=== PATIENT | female | born 1940 | race Caucasian/White ===

== ENCOUNTER 2017-08-24 13:51 | Outpatient (CLI) | payer MEDICARE, OTHER | END 2017-08-24 13:52 | disposition home or self-care (01) | LOC: BICULT 13:51 | PROVIDERS: ATTEND Internal Medicine | DX: E04.2 Nontoxic multinodular goiter (principal) | CPT/HCPCS: 76536 ==

== ENCOUNTER 2018-06-13 13:42 | Outpatient (CLI) | payer MEDICARE, OTHER ==
--- NOTE | 2018-06-13 15:48 | ULT ---
BILATERAL RENAL ULTRASOUND: 06/13/18 HISTORY: Chronic renal disease. FINDINGS: The right kidney measures 8.1 cm and the left kidney measures 9.3 cm in length. No focal mass or hydr onephrosis seen on either side. No shadowing calculi are noted. The urinary bladder is incompletely d istended with a volume of 49 mL. IMPRESSION: No evidence of high grade obstruction. POS: [facility]
== END 2018-06-13 13:43 | disposition home or self-care (01) ==
LOC: BICULT 13:42
PROVIDERS: ATTEND Internal Medicine
DX: N18.3 Chronic kidney disease, stage 3 (moderate) (principal)
CPT/HCPCS: 76770

== ENCOUNTER 2018-09-12 13:05 | Outpatient (CLI) | payer MEDICARE, OTHER ==
--- NOTE | 2018-09-16 13:26 | MMO ---
Bilateral MAMMO Bilat Screen [facility]+JA[facility]EN. CLINICAL HISTORY: Patient is 78 years old and is seen for screening. The patient has no family history of breast cancer. The patient has no personal history of cancer. VIEWS: The views performed were: bilateral craniocaudal with tomosynthesis and bilateral mediolateral oblique with tomosynthesis. FILMS COMPARED: The present examination has been compared to prior imaging studies performed at [facility] on 10/18/2015 and 09/01/2016. MAMMOGRAM FINDINGS: There are scattered fibroglandular densities. There are stable benign appearing calcifications seen in both breasts. There are no suspicious masses, suspicious calcifications, or new areas of architectural distortion. IMPRESSION: THERE IS NO MAMMOGRAPHIC EVIDENCE OF MALIGNANCY. A ROUTINE FOLLOW-UP MAMMOGRAM IN 1 YEAR IS RECOMMENDED. THE RESULTS OF THIS EXAM WERE SENT TO THE PATIENT. ACR BI-RADS Category 2 - Benign finding MAMMOGRAPHY NOTE: 1. A negative mammogram report should not delay a biopsy if a dominant of clinically suspicious mass is present. 2. Approximately 10% to 15% of breast cancers are not detected by mammography. 3. Adenosis and dense breasts may obscure an underlying neoplasm.
== END 2018-09-12 13:06 | disposition home or self-care (01) ==
LOC: BICMAMMO 13:05
PROVIDERS: ATTEND Internal Medicine
DX: Z12.31 Encounter for screening mammogram for malignant neoplasm of breast (principal)
CPT/HCPCS: 77063; 77067

== ENCOUNTER 2019-03-28 20:30 | Outpatient (CLI) | payer MEDICARE, OTHER | END 2019-03-28 20:31 | disposition home or self-care (01) | LOC: SLEEPLAB 20:30 | PROVIDERS: ATTEND Internal Medicine | DX: G47.33 Obstructive sleep apnea (adult) (pediatric) (principal); R53.83 Other fatigue; I10 Essential (primary) hypertension | CPT/HCPCS: 95810 ==

== ENCOUNTER 2019-05-04 19:30 | Outpatient (CLI) | payer MEDICARE, OTHER | END 2019-05-04 19:31 | disposition home or self-care (01) | LOC: SLEEPLAB 19:30 | PROVIDERS: ATTEND Internal Medicine | DX: G47.33 Obstructive sleep apnea (adult) (pediatric) (principal); R53.83 Other fatigue; R09.89 Other specified symptoms and signs involving the circulatory and respiratory systems; I10 Essential (primary) hypertension; G47.00 Insomnia, unspecified; G47.10 Hypersomnia, unspecified; R06.83 Snoring | CPT/HCPCS: 95811 ==

== ENCOUNTER 2019-10-23 15:13 | Outpatient (CLI) | payer MEDICARE, OTHER ==
--- NOTE | 2019-10-24 08:07 | MMO ---
Bilateral MAMMO Bilat Screen [facility]EN. CLINICAL HISTORY: Patient is 79 years old and is seen for screening. The patient has no family history of breast cancer. The patient has no personal history of cancer. VIEWS: The views performed were: bilateral craniocaudal with tomosynthesis and bilateral mediolateral oblique with tomosynthesis. FILMS COMPARED: The present examination has been compared to prior imaging studies performed at [facility] on 10/18/2015, 09/01/2016 and 09/12/2018. This study has been interpreted with the assistance of computer-aided detection. MAMMOGRAM FINDINGS: There are scattered fibroglandular densities. There are benign appearing and vascular calcifications seen in both breasts. There are no suspicious masses, suspicious calcifications, or new areas of architectural distortion. IMPRESSION: THERE IS NO MAMMOGRAPHIC EVIDENCE OF MALIGNANCY. A ROUTINE FOLLOW-UP MAMMOGRAM IN 1 YEAR IS RECOMMENDED. THE RESULTS OF THIS EXAM WERE SENT TO THE PATIENT. ACR BI-RADS Category 2 - Benign finding MAMMOGRAPHY NOTE: 1. A negative mammogram report should not delay a biopsy if a dominant of clinically suspicious mass is present. 2. Approximately 10% to 15% of breast cancers are not detected by mammography. 3. Adenosis and dense breasts may obscure an underlying neoplasm. Reported by: CLARISSA PRIDE MD Electonically Signed: [id number]
== END 2019-10-23 15:14 | disposition home or self-care (01) ==
LOC: BICMAMMO 15:13
PROVIDERS: ATTEND Internal Medicine
DX: Z12.31 Encounter for screening mammogram for malignant neoplasm of breast (principal)
CPT/HCPCS: 77063; 77067

== ENCOUNTER 2020-01-12 18:56 | Inpatient (IN) | payer MEDICARE, OTHER ==
[2020-01-12 19:37] LABS: #Eosinphils 0.1 thou/uL (0.0-0.7); #Lymphocytes 2.7 thou/uL (1.20-3.40); #Monocytes 0.8 thou/uL (0.11-0.59); #Neutrophils 10.1 thou/uL (1.40-6.50); %Basophils 0.4 % (0.0-1.0); %Eosinophils 0.4 % (0.0-10.0); %Lymphocytes 19.9 % (21.0-51.0); %Monocytes 5.9 % (0.0-10.0); %Neutrophils 73.5 % (42.0-75.0); Hemoglobin 15.3 g/dL (12.0-16.0); Mean Corpuscular HGB CONC 34.5 g/dL (32.0-36.0); Mean Corpuscular Hemoglobin 31.1 pg (27.0-31.0); Mean Corpuscular Volume 90.3 fL (78.0-98.0); Mean Platelet Volume 7.1 fL (7.4-10.4); Platelet Count 577 thou/uL (130-400); RBC Distribution Width 12.3 % (11.5-14.5); White Blood Cell (WBC) Count 13.7 thou/uL (4.8-10.8)
--- NOTE | 2020-01-12 19:47 | RAD ---
EXAM: CHEST ONE VIEW HISTORY: Lightheadedness and dizziness. Covid +18 days ago. COMPARISON: None FINDINGS: The cardiac silhouette and pulmonary vasculature is within normal limits. Linear densities are presen t at the left lung base and to lesser extent at the right lung base. Minimal linear and slight patchy opacity are seen at the lateral aspect left upper and midlung zone. These findings may be rela nelson to areas of mild scarring, but pneumonitis cannot be entirely excluded. No pleural effusion is identified. Degenerative changes are seen in the spine. Right acromioclavicular joint osteoarthritis is present. Osteopenia is noted. Vascular calcifications present in the thoracic aorta. IMPRESSION: Linear densities left lung base with minimal linear and slight patchy opacity at the right lung base, left midlung zone, and left upper lung zone. Findings could be related to areas of atelectasis and/or scarring. Pneumonitis could not be entirely excluded.
[2020-01-12 19:59] LABS: ALT (SGPT) 40 U/L (8-55); AST (SGOT) 44 U/L (5-34); Albumin 4.1 g/dL (3.4-4.8); Alkaline Phosphatase 112 U/L (40-110); Anion Gap 17 mmol/L (10-20); BUN (Urea Nitrogen) 27 mg/dL (9.8-20.1); Bilirubin, Total 0.6 mg/dL (0.2-1.2); Calc. Creatinine Clearance 0 mL/min (70-130); Calcium 10.2 mg/dL (7.8-10.44); Carbon Dioxide 22 mmol/L (23-31); Chloride 100 mmol/L (98-107); Estimated GFR-MDRD 31; Glucose 116 mg/dL (83-110); Potassium 3.8 mmol/L (3.5-5.1); Protein, Total 8.1 g/dL (6.0-8.3); Sodium 135 mmol/L (136-145)
[2020-01-12] MEDS ORDERED: Meclizine HCl 25 MG TAB ONE (20:06)
[2020-01-12] MEDS ORDERED: cefTRIAXone\\ROCEPHIN 1 GM VIAL ONE (20:06)
[2020-01-12 20:07] LABS: Bacteria/HPF 4+ HPF (None Seen); Bilirubin Negative (Negative); Blood, Urine Negative (Negative); Clarity Turbid (Clear); Glucose, Urine (Dipstick) Normal (Negative); Ketone, Urine 10 mg/dL (Negative); Leukocyte 500 Leu/uL (Negative); Nitrite 2+ (Negative); Protein, Urine (Dipstick) 20 mg/dL (Neg-Trace); RBC/HPF 0-3 HPF (0-3); Transitional Epithelial 0-3 HPF (None Seen); Urobilinogen Normal mg/dL (Less than 2); WBC/HPF Greater than 50 HPF (0-3); pH, Urine 5.5 (5.0-9.0)
[2020-01-12 20:21] LABS: CKMB 1.6 ng/mL (0-6.6)
[2020-01-12] MEDS ORDERED: Aspirin Chewable 81 MG TAB ONE (21:08)
[2020-01-12 21:38] LABS: Lactic Acid 1.9 mmol/L (0.5-2.2)
--- NOTE | 2020-01-12 22:08 | CT ---
CT HEAD WITHOUT IV CONTRAST COMPARISON: None HISTORY: Altered mental status TECHNIQUE: Axial CT imaging at 5 mm intervals from vertex through skull base without contrast FINDINGS: There is decreased attenuation in the periventricular white matter which is nonspecific but likely re flective of chronic small vessel ischemic changes. There is mild cerebral volume loss. The ventricular system is normal in size, shape, and position for the degree of sulcal atrophy. There is no evidence of an acute infarction, hemorrhage, mass effect, or midline shift. Visualized paranasal sinuses are clear. Osseous structures appear intact. IMPRESSION: 1. No acute intracranial abnormality demonstrated. 2. Chronic small vessel ischemic changes and cerebral volume loss.
[2020-01-12 23:51] LABS: Troponin I 0.034 ng/mL (< 0.028)
--- NOTE | 2020-01-13 02:09 | HP ---
PRIMARY CARE PROVIDER: Dr. Trisha Soares. CHIEF COMPLAINT: General weakness and syncope. HISTORY OF PRESENT ILLNESS: This is a 79-year-old female who presented to [facility] Emergency Department after complaining of lightheadedness and dizziness over the last 48 hours. The history is somewhat convoluted as the patient is a poor historian and is pieced together after discussions with the emergency room attending as well as discussions with the patient at the bedside. The patient was apparently diagnosed with COVID viral infection approximately 18 days prior to this evaluation, and has been at home, self quarantine. The patient apparently had a syncopal event with prodromal symptoms of lightheadedness and shortness of breath. The patient denied any documented fever, chills, or family members with similar symptoms. The patient denied any change to her chronic medication regimen. The patient denied any abdominal discomfort, diarrhea, or prominent dysuria. The patient states that she apparently fell approximately 48 hours ago, striking her head with some worsening confusion. Evaluation in the emergency room included CT imaging of the brain showing no acute process. Metabolic screening did show evidence of urinary tract infection as well as acute kidney injury. At which point, the patient received IV Rocephin 1 g x1 dose in addition to aspirin 324 mg, meclizine, and intravenous normal saline. A portable chest x-ray imaging in the emergency room also showed bilateral infiltrates consistent with pneumonitis. PAST MEDICAL HISTORY: 1. Hypertension. 2. Chronic kidney disease. 3. COVID positive x18 days prior to this evaluation. 4. Depression. 5. Gastroesophageal reflux. 6. Hypothyroidism. PAST SURGICAL HISTORY: Status post cholecystectomy. CURRENT MEDICATIONS: 1. Effexor 75 mg 2 tablets p.o. at bedtime. 2. Amitriptyline 10 mg 2 tablets p.o. at bedtime. 3. Nexium 20 mg p.o. daily. 4. Amlodipine 10 mg p.o. daily. 5. Propranolol 15 mg p.o. daily. 6. Losartan 100 mg p.o. daily. 7. Levothyroxine 137 mcg p.o. daily. ALLERGIES: NO KNOWN DRUG ALLERGIES. FAMILY HISTORY: No inheritable diseases per patient report. SOCIAL HISTORY: Resides in [facility]. Originally from the [facility]. No current alcohol, tobacco, or illicit drug use. Functional of all activities of daily living. REVIEW OF SYSTEMS: CONSTITUTIONAL: Negative for weight loss or gain, ability to conduct usual activities. SKIN: Negative for rash, itching. EYES: Negative for double vision, pain. ENT/MOUTH: Negative for nose bleeding, neck stiffness, pain, tenderness. CARDIOVASCULAR: Negative for palpitations, dyspnea on exertion, orthopnea. RESPIRATORY: Negative for shortness of breath, wheezing, cough, hemoptysis, fever or night sweats. GASTROINTESTINAL: Negative for poor appetite, abdominal pain, heartburn, nausea, vomiting, constipation, or diarrhea. GENITOURINARY: Negative for urgency, frequency, dysuria, nocturia. MUSCULOSKELETAL: Negative for pain, swelling. NEUROLOGIC/PSYCHIATRIC: Negative for anxiety, depression. ALLERGY/IMMUNOLOGIC: Negative for skin rash, bleeding tendency. Otherwise, negative except as stated per HPI. PHYSICAL EXAMINATION: VITAL SIGNS: Blood pressure 109/56, pulse 73, respiratory rate 23, temperature 98.3 degrees Fahrenheit, and O2 saturation 97% on room air. GENERAL APPEARANCE: This is a 79-year-old female, alert and oriented x3, pleasant, responsive, in no acute distress. HEENT: Pupils are equal, round, reactive to light and accommodation. Extraocular muscles are intact. No scleral icterus. No conjunctival injection. Nares are patent. OP is clear. Oral mucosa dry. NECK: Supple. No cervical adenopathy. No thyromegaly. No carotid bruits. No JVD appreciated. Cervical spine with full active and passive range of motion. No meningeal signs noted. CHEST: Scattered rhonchi in the bases, otherwise clear to auscultation. CARDIOVASCULAR: S1 and S2 without noted murmur, rub, or gallop. ABDOMEN: Obese, soft, nontender, and nondistended. Bowel sounds are positive in all 4 quadrants. There is no hepatosplenomegaly. No abdominal bruits. No rebound or guarding appreciated. EXTREMITIES: Warm and dry with fair turgor. No clubbing, cyanosis, or asymmetric edema appreciated. Pulses are palpable distally at the dorsalis pedis, posterior tibial, and popliteal arteries bilaterally. Capillary refill less than 2 seconds. NEUROLOGIC: Cranial nerves 2 through 12 grossly intact. No focal or lateralizing signs appreciated. The patient not observed ambulatory during this exam. PERTINENT LABORATORY AND X-RAY FINDINGS: Sodium 135, potassium 3.8, chloride 100, CO2 of 22, BUN 27, creatinine 1.63, estimated GFR 31, glucose 116, lactic acid level 1.9, calcium 10.2, magnesium 2.0, AST 44, ALT of 40, alkaline phosphatase 112. Troponin I 0.042. CBC showed a white blood cell count of 13.7, hemoglobin 15, hematocrit 44, platelet count 577 with 74% neutrophils. Urinalysis shows specific gravity of 1.020, positive ketones, positive nitrite, positive leukocyte esterase with greater than 50 to [id number]-[id number]-count wbc's per high-power field, 4+ urine bacteria. Portable chest x-ray dated 01/12/2020, by my interpretation shows bilateral pulmonary infiltrates. CT of the brain without contrast dated 01/12/2020, showed no acute intracranial process. Chronic ischemic white matter changes noted. EKG dated 01/12/2020, by my interpretation shows sinus mechanism with premature atrial complexes with heart rates in the 80s. Poor R-wave progression noted in the precordial leads. No acute ST-T wave changes appreciated. ASSESSMENT AND PLAN: 1. Syncope. Suspect multifactorial process. We will continue supportive management as outlined below. Check 2D transthoracic echocardiogram in the a.m. with a carotid Doppler study. Suspect component of volume depletion. CT of the brain negative. 2. Acute kidney injury. Avoid nephrotoxic agents and limit contrast exposure. Continue IV fluids with normal saline at 75 mL/h. Repeat creatinine in the a.m. 3. History of COVID-19 viral infection. We will continue IV antibiotics with azithromycin 500 mg daily. Respiratory and droplet precautions. No current oxygen requirement. 4. Urinary tract infection. Continue Rocephin 2 g IV daily. Await final urine culture results. 5. Hypertension. Confirm home blood pressure regimen and monitor clinical response. 6. Demand ischemia. Suspect secondarily to the patient's presentation with urinary tract infection in addition to acute kidney injury. Continue serial cardiac biomarkers q.3 hours x2. 7. Prophylaxis. Sequential compression devices while in bed. Pepcid 20 mg p.o. b.i.d. 8. Code status, full. Surrogate medical decision maker is the patient's spouse. Job ID: [id number]
[2020-01-13] MEDS ORDERED: Acetaminophen 500 MG TAB PO PRN (03:02)
[2020-01-13] MEDS ORDERED: hydrALAZINE 20 MG/ML VIAL SLOW IVP PRN (03:02)
[2020-01-13] MEDS ORDERED: Ondansetron PF 4 MG/2 ML Vial IVP PRN (03:02)
[2020-01-13] MEDS ORDERED: Ondansetron ODT 4 MG TAB PO PRN (03:02)
[2020-01-13 03:11] VITALS: BMI 31.8
[2020-01-13] MEDS ORDERED: Sodium Chloride 0.9% 1,000 ML IV SCH (03:30)
[2020-01-13] MEDS: Azithromycin 500 MG in Sodium Chloride 0.9% 250 ML 250 ML IVPB SCH (03:58)
--- NOTE | 2020-01-13 07:45 | ULT ---
Carotid duplex sonogram HISTORY: Syncope. Vascular disease. TIA. FINDINGS: Right: Scattered areas of mild plaque. Color and spectral Doppler evaluation, peak systolic velocity of 60 cm/s, and IC to CC ratio 1.3 sugg est no hemodynamically significant stenosis within the extra cranial right ICA. Antegrade flow within the vertebral artery. Left: Scattered plaque. Color and spectral Doppler evaluation, peak systolic velocity of 90 cm/s, and IC to CC ratio 1.7 suggest no hemodynamically significant stenosis within the extracranial left ICA. Antegrade flow within the vertebral artery. IMPRESSION : Atherosclerosis. No sonographic evidence of significant extracranial ICA stenosis
[2020-01-13] MEDS: Famotidine 20 MG TAB PO SCH (07:57)
[2020-01-13 08:31] LABS: #Basophils 0.1 thou/uL (0.0-0.2); #Eosinphils 0.1 thou/uL (0.0-0.7); #Lymphocytes 3.3 thou/uL (1.20-3.40); #Neutrophils 6.9 thou/uL (1.40-6.50); %Basophils 0.8 % (0.0-1.0); %Eosinophils 0.6 % (0.0-10.0); %Lymphocytes 28.7 % (21.0-51.0); %Monocytes 8.8 % (0.0-10.0); %Neutrophils 61.1 % (42.0-75.0); Hemoglobin 13.2 g/dL (12.0-16.0); Mean Corpuscular HGB CONC 32.9 g/dL (32.0-36.0); Mean Corpuscular Hemoglobin 30.1 pg (27.0-31.0); Mean Corpuscular Volume 91.6 fL (78.0-98.0); Mean Platelet Volume 7.4 fL (7.4-10.4); Platelet Count 464 thou/uL (130-400); RBC Distribution Width 12.3 % (11.5-14.5); Red Blood Cell (RBC) Count 4.37 mill/uL (4.20-5.40); White Blood Cell (WBC) Count 11.3 thou/uL (4.8-10.8)
[2020-01-13 08:32] LABS: MDiff Complete? YES
[2020-01-13 09:04] LABS: Anion Gap 13 mmol/L (10-20); BUN (Urea Nitrogen) 27 mg/dL (9.8-20.1); Calc. Creatinine Clearance 40 mL/min (70-130); Calcium 9.3 mg/dL (7.8-10.44); Carbon Dioxide 22 mmol/L (23-31); Chloride 102 mmol/L (98-107); Estimated GFR-MDRD 31; Glucose 81 mg/dL (83-110); Sodium 134 mmol/L (136-145)
[2020-01-13 09:09] LABS: Potassium 2.9 mmol/L (3.5-5.1); Troponin I 0.022 ng/mL (< 0.028)
[2020-01-13] MEDS ORDERED: Potassium Chloride 10 MEQ in Premix Bag 1 BAG IVPB SCH (10:30)
[2020-01-13] MEDS ORDERED: Potassium Chloride 20 MEQ TAB PO SCH (10:30)
[2020-01-13 11:56] LABS: Troponin I 0.016 ng/mL (< 0.028)
--- NOTE | 2020-01-13 14:32 | PDOC.HOSPP ---
- Subjective Encounter Date: 01/13/20 Encounter Time: 12:30 Subjective: Patient feeling much better. No more dizziness/lightheadedness. Ambulating to the bathroom without any presyncopal symptoms. - Objective Vital Signs & Weight: Vital Signs (12 hours) Temp Pulse Resp BP Pulse Ox 01/13/20 11:27 98.4 F 96 20 144/77 H 95 01/13/20 08:00 98.4 F 76 20 118/60 97 01/13/20 04:00 97 01/13/20 02:40 98.0 F 81 24 H 133/68 97 Weight Weight 191 lb 8 oz Result Diagrams: 01/13/20 07:34 01/13/20 07:34 Radiology Reviewed by me: Yes (Carotids with plaques, no stenosis) Hospitalist ROS - Review of Systems Constitutional: denies: fever, chills Respiratory: denies: cough, shortness of breath Cardiovascular: denies: chest pain, palpitations, orthopnea, light headedness Gastrointestinal: denies: nausea, vomiting, abdominal pain, diarrhea, constipation Genitourinary: denies: dysuria, hematuria - Medication Medications: Active Medications Generic Name Dose Route Start Last Admin Trade Name Freq PRN Reason Stop Dose Admin Famotidine 20 mg 01/13/20 09:00 01/13/20 07:57 Pepcid PO 20 mg DAILY YENI Administration Azithromycin 500 mg/ Sodium 250 mls @ 250 mls/hr 01/13/20 04:00 01/13/20 03: 58 Chloride IVPB 250 mls 0400 YENI Administration - Exam General Appearance: NAD, awake alert ENT: moist mucosa Heart: RRR, no murmur, no gallops, no rubs Respiratory: CTAB, no wheezes, no rales, no ronchi Gastrointestinal: soft, non-tender, non-distended, normal bowel sounds Extremities: no edema Psychiatric: normal affect, normal behavior, A&O x 3 Hosp A/P (1) Syncope Code(s): R55 - SYNCOPE AND COLLAPSE Status: Acute (2) Acute renal failure Status: Acute (3) UTI (urinary tract infection) Status: Acute (4) COVID-19 virus detected Code(s): U07.1 - COVID-19 Status: Acute (5) HTN (hypertension) Code(s): I10 - ESSENTIAL (PRIMARY) HYPERTENSION Status: Chronic Qualifiers: Hypertension type: essential hypertension Qualified Code(s): I10 - Essential (primary) hypertension - Plan Creatinine improved, uncertain baseline in recent years Ambulating better. Will check orthostatics. D/C IV fluids and po hydrate overnight If doing well in AM can likely d/c home. ECHO pending.
[2020-01-13 14:43] LABS: SARS-CoV-2 MS2 Positive; SARS-CoV-2 N Gene Positive; SARS-CoV-2 S Gene Negative; SARS-CoV-2 orf1ab Positive
[2020-01-13] MEDS ORDERED: cefTRIAXone\\ROCEPHIN 2 GM in Sodium Chloride 0.9% 100 ML IVPB SCH (20:00)
[2020-01-14] MEDS: Azithromycin 500 MG in Sodium Chloride 0.9% 250 ML 250 ML IVPB SCH (03:52)
[2020-01-14 05:51] LABS: Anion Gap 15 mmol/L (10-20); BUN (Urea Nitrogen) 20 mg/dL (9.8-20.1); Calc. Creatinine Clearance 53 mL/min (70-130); Calcium 9.7 mg/dL (7.8-10.44); Carbon Dioxide 22 mmol/L (23-31); Chloride 104 mmol/L (98-107); Estimated GFR-MDRD 44; Glucose 93 mg/dL (83-110); Potassium 3.4 mmol/L (3.5-5.1); Sodium 138 mmol/L (136-145)
[2020-01-14] MEDS: Famotidine 20 MG TAB PO SCH (07:43)
--- NOTE | 2020-01-14 07:58 | PDOC.HOSPP ---
- Subjective Encounter Date: 01/14/20 Encounter Time: 11:30 Subjective: Patient feeling well. Ambulating well in room. Sating well on room air. Ready to go home. - Objective Vital Signs & Weight: Vital Signs (12 hours) Temp Pulse Resp BP Pulse Ox 01/14/20 03:44 98.6 F 72 18 146/87 H 95 01/13/20 23:30 98.5 F 88 18 142/91 H 97 01/13/20 20:00 98.7 F 96 18 145/72 H 97 Weight Weight 191 lb 8 oz I&O: 01/13/20 01/14/20 01/15/20 06:59 06:59 06:59 Intake Total 2049 Output Total 1700 Balance 350 Result Diagrams: 01/13/20 07:34 01/14/20 05:15 Hospitalist ROS - Review of Systems Constitutional: denies: fever, chills Respiratory: denies: cough, shortness of breath Cardiovascular: denies: chest pain, palpitations, orthopnea Gastrointestinal: denies: nausea, vomiting, abdominal pain Genitourinary: denies: dysuria, hematuria - Medication Medications: Active Medications Generic Name Dose Route Start Last Admin Trade Name Freq PRN Reason Stop Dose Admin Famotidine 20 mg 01/13/20 09:00 01/13/20 07:57 Pepcid PO 20 mg DAILY YENI Administration - Exam General Appearance: NAD, awake alert ENT: moist mucosa Heart: RRR, no murmur, no gallops, no rubs Respiratory: CTAB, no wheezes, no rales, no ronchi Gastrointestinal: soft, non-tender, non-distended, normal bowel sounds Neurological - other findings: mild intention tremor Psychiatric: normal affect, normal behavior, A&O x 3 Hosp A/P (1) Syncope Code(s): R55 - SYNCOPE AND COLLAPSE Status: Resolved (2) Acute renal failure Status: Acute (3) UTI (urinary tract infection) Status: Acute Qualifiers: Urinary tract infection type: acute cystitis (4) COVID-19 virus detected Code(s): U07.1 - COVID-19 Status: Acute (5) HTN (hypertension) Code(s): I10 - ESSENTIAL (PRIMARY) HYPERTENSION Status: Chronic Qualifiers: Hypertension type: essential hypertension Qualified Code(s): I10 - Essential (primary) hypertension - Plan Creatinine continuing to improve Ambulating better. No orthostasis this morning UTI with resistant E. coli, sensitive to Zosyn and Macrobid, since no symptoms will treat with Macrobid Unable to get ECHO due to Covid-19 positive, recommend f/u outpatient after recovery Can d/c home today
[2020-01-14] MEDS ORDERED: Potassium Chloride 20 MEQ TAB PO SCH (08:00)
[2020-01-14] MEDS ORDERED: Nitrofurantoin Monohyd/M-Cryst 100 MG CAP PO SCH (09:00)
[2020-01-14 13:00] VITALS: BP 137/79; TEMP 98.7
--- NOTE | 2020-01-14 14:08 | PQF ---
CLINICAL DOCUMENTATION CLARIFICATION FORM: Dear Dr. Chance Schmitt Date: 01-14-20 Please exercise your independent, professional judgment in responding to the clarification form. Clinical indicators are provided on the bottom of this form for your review. Please check appropriate box(es) to clarify if the following diagnosis has been ruled in our ruled out: SEPSIS [ ] Sepsis Ruled IN [ ] due to COVID-19 [ ] due to UTI [ X ] Sepsis Ruled OUT [ X ] COVID-19 and UTI without Sepsis [ ] Cannot rule out diagnosis [ ] Other diagnosis [ ] Unable to determine For continuity of documentation, please document condition throughout progress notes and discharge summary. Thank You. To be completed by CDI/Coding staff for physician review: CLINICAL INDICATORS - SIGNS / SYMPTOMS / LABS / RESULTS AND LOCATION IN 7-20 ED: SEPSIS; RADHA; SYNCOPE; COVID -19; UTI *Vaginal bleeding x 7 days per *sepsis activation * P 73-94; RR 16-30; R 98.3 oral; MAP 73-94; O2 SAT 96-100% ON RA LABS: WBC Lactic Acid 01-11 13.7 1.9 01-12 11.3 01-11 H&P (Wally): *PMH: UTI; CKD; COVID positive x 18 days prior to this eval; depression; GERD; Hypothyroidism; *DX: SYNCOPE - suspect multifactorial process *RADHA; UTI; DEMAND ISCHEMIA; HX COVID; RISK FACTORS / RESULTS AND LOCATION IN - H&P (Wally): *PMH: UTI; CKD; COVID positive x 18 days prior to this eval TREATMENTS / RESULTS AND LOCATION IN 7- ED: Ceftriaxone IV; 1LNS; meclizine PO MAR: * Zithromax IV 01/12- 01/14/20 *Rocephin IV 01/12 CDS Signature: Carrie Romero RN, CCDS Phone #: [phone] Date: 01-13 This is a permanent part of the Medical Record [facility]
--- NOTE | 2020-01-14 17:12 | DIS ---
DATE OF ADMISSION: 01/12/2020 DATE OF DISCHARGE: 01/14/2020 PRIMARY CARE PHYSICIAN: Trisha Soares MD REASON FOR ADMISSION: Syncope and acute kidney injury. DIAGNOSES AT DISCHARGE: 1. Syncope secondary to dehydration, resolved. 2. Acute renal failure, improved. 3. Urinary tract infection with Escherichia coli. 4. Coronavirus-19 positive. 5. Hypertension. 6. Postmenopausal vaginal bleeding. PROCEDURES: 1. CT of the brain without contrast showing no acute intracranial abnormality, just chronic small vessel ischemic changes and cerebral volume loss. 2. Carotid Dopplers showing no evidence for significant stenosis. There is atherosclerosis of the carotids. CONSULTATIONS: None. SUMMARY OF HOSPITAL COURSE: This is a 79-year-old white female who came into the ER complaining of lightheadedness and dizziness over the last 14 hours. She had been diagnosed with COVID viral infection 18 days ago, but she was not having any specific symptoms to it and then prior to coming in, she had prodromal symptoms of lightheadedness and shortness of breath and then fell out next to her who caught her and she did strike her head. The patient now stresses that she does not think she actually passed out all the way in the emergency room. She had a negative CT of the brain. She did have an acute renal failure. However, she had evidence for urinary tract infection. She was given IV fluids, put on IV Rocephin, and she did have a chest x-ray showing some bilateral pneumonitis. The patient was treated with IV fluids and antibiotics in the hospital. She had resolution of all of her dizziness symptoms. Her renal failure improved. She was able to get up without any dizziness and ambulate around her room. She never did have any coughing, shortness of breath, and never developed any need for oxygen. The patient was eventually weaned off IV fluids, just taking p.o. fluids, and her orthostatics were negative. Her urine culture did not grow back Escherichia coli resistant to the Rocephin, sensitive only to Zosyn and Macrobid. She never did have any dysuria or other urinary symptoms and never had any symptoms of sepsis during her hospitalization. As a result of lack of symptomatic UTI, she was switched to oral Macrobid. She was doing well the day of discharge and is being discharged to home to follow up with her primary care physician. Of note, the patient had had some light bloody discharge from her vagina for the last 7 days. She had talked to the oncologist who said that they would need a workup done to see what it was that was causing the bleeding. She had talked to OB-GUIDANCE ADVISER and they stated that she needed to clear her COVID infection before they could see her for this and do diagnostic testing. She did not have any significant vaginal bleeding during hospitalization. However, so, she will need to follow up with OB-GUIDANCE ADVISER as an outpatient after clearing the COVID virus, she did have continued positive test in the hospital this time. DISCHARGE MANAGEMENT: Discharged to home with Home Health for physical therapy. ACTIVITY: As tolerated. DIET: Healthy heart diet. FOLLOWUP: Follow up with Dr. Trisha Soares in 14 days. DISCHARGE MEDICATIONS: 1. Macrobid 100 mg twice a day 14 caps, dispensed. 2. Amitriptyline 20 mg at night. 3. Amlodipine 10 mg daily. 4. Nexium 40 mg daily. 5. Levothyroxine 137 mcg daily. 6. Propranolol 15 mg daily. 7. Venlafaxine 150 mg at night. Job ID: [id number]
== END 2020-01-14 13:35 | disposition home health service (06) | DRG 682 ==
LOC: ERS 18:56 → ERHOLD 22:30 → OBSVTOIN 23:06 → 2SW 01-13 02:31
PROVIDERS: ADMIT Family Medicine; ATTEND Family Medicine
DX: N17.9 Acute kidney failure, unspecified (principal); U07.1 COVID-19; J18.9 Pneumonia, unspecified organism; N39.0 Urinary tract infection, site not specified; I24.8 Other forms of acute ischemic heart disease; E86.0 Dehydration; B96.20 Unspecified Escherichia coli [E. coli] as the cause of diseases classified elsewhere; N95.0 Postmenopausal bleeding; I12.9 Hypertensive chronic kidney disease with stage 1 through stage 4 chronic kidney disease, or unspecified chronic kidney disease; N18.9 Chronic kidney disease, unspecified; F32.9 Major depressive disorder, single episode, unspecified; K21.9 Gastro-esophageal reflux disease without esophagitis; E03.9 Hypothyroidism, unspecified; Z90.49 Acquired absence of other specified parts of digestive tract
CPT/HCPCS: 36415; 70450; 71045; 80048; 80053; 81003; 81015; 82553; 83605; 83735; 84484; 85025; 87040; 87077; 87086; 87186; 87635; 93005; 93880; 96365; J0456; J0696; J3480; J3490; J7050; U0003

== ENCOUNTER 2020-06-03 06:24 | Outpatient (CLI) | payer MEDICARE, OTHER ==
[2020-06-03 10:50] LABS: Bilirubin Neg (Negative); Blood, Urine Negative (Negative); Clarity Clear (Clear); Glucose, Urine (Dipstick) Normal (Negative); Ketone, Urine 5 mg/dL (Negative); Leukocyte 500 (Negative); Nitrite Negative (Negative); Protein, Urine (Dipstick) 30 mg/dl (Neg-Trace); Specific Gravity, Urine 1.025 (1.002-1.036)
[2020-06-03 10:57] LABS: #Eosinphils 0.3 10x3/uL (0.0-0.5); #Monocytes 0.7 10x3/uL (0.0-1.1); #Neutrophils 6.2 10x3/uL (1.5-8.4); %Basophils 0.4 % (0.0-2.0); %Eosinophils 2.7 % (0.0-6.0); %Lymphocytes 30.8 % (18.0-47.0); %Monocytes 6.8 % (0.0-10.0); Hemoglobin 13.3 g/dL (12.0-16.0); Mean Corpuscular HGB CONC 32.4 G/DL (32.0-36.0); Mean Corpuscular Hemoglobin 30.3 PG (27.0-33.0); Mean Corpuscular Volume 93.6 fl (80.0-100.0); Mean Platelet Volume 10.1 fl (7.4-10.4); Platelet Count 328 10x3/uL (130-400); RBC Distribution Width 13.2 % (11.5-14.5); Red Blood Cell (RBC) Count 4.39 10x6/uL (3.90-5.20); White Blood Cell (WBC) Count 10.4 10x3/uL (4.5-11.0)
[2020-06-03 11:11] LABS: Prothrombin Time 10.4 sec (9.5-12.1)
[2020-06-03 11:17] LABS: Bacteria/HPF 1+ HPF (None Seen); Calcium Oxalate Crystals 2+ HPF (None Seen); RBC/HPF 0-3 HPF (0-3); Squamous Epithelial 0-3 HPF (0-3)
[2020-06-03 11:53] LABS: Anion Gap 18 mmol/L (10-20); BUN (Urea Nitrogen) 16 mg/dL (9.8-20.1); Calc. Creatinine Clearance 0 mL/min (70-130); Calcium 9.3 mg/dL (7.8-10.44); Carbon Dioxide 21 mmol/L (23-31); Chloride 105 mmol/L (98-107); Glucose 114 mg/dL (83-110); Sodium 139 mmol/L (136-145)
[2020-06-03 22:36] LABS: SARS-CoV-2 MS2 Positive; SARS-CoV-2 N Gene Negative; SARS-CoV-2 S Gene Negative; SARS-CoV-2 by NAA Not Detected (NotDetected); SARS-CoV-2 orf1ab Negative
== END 2020-06-03 06:25 | disposition home or self-care (01) ==
LOC: LABBT 06:24
PROVIDERS: ATTEND Orthopaedic Surgery
DX: Z01.818 Encounter for other preprocedural examination (principal); Z20.828 Contact with and (suspected) exposure to other viral communicable diseases; M17.11 Unilateral primary osteoarthritis, right knee
CPT/HCPCS: 80048; 81001; 85025; 85610; 87081; 93005; U0003; 87635; 93010

== ENCOUNTER 2020-06-08 07:17 | Day surgery (SDC) | payer MEDICARE, OTHER ==
[2020-06-07 10:49] VITALS: BMI 32.5
[2020-06-08] MEDS ORDERED: Vancomycin 1.5 GRAM/300 ML BAG ONE (07:49)
[2020-06-08] MEDS ORDERED: Tranexamic Acid 1,000 MG/10 ML VIAL ONE (07:49)
[2020-06-08] MEDS ORDERED: Sodium Chloride 0.9% 100 ML ONE (07:49)
[2020-06-08] MEDS ORDERED: Fentanyl 100 MCG/2 ML VIAL ONE ×4 (08:16→23:31)
[2020-06-08] MEDS ORDERED: Midazolam HCl 2 mg/2 ml Vial ONE (08:16)
[2020-06-08] MEDS ORDERED: Lidocaine 1% (PF) 30 ML VIAL ONE (08:16)
[2020-06-08] MEDS ORDERED: Fentanyl 100 MCG/2 ML VIAL IV PRN (08:47)
[2020-06-08] MEDS ORDERED: HYDROcodone/Acetaminophen 10/325 mg Tablet PO PRN ×2 (09:00)
[2020-06-08] MEDS ORDERED: Zolpidem Tartrate 5 MG TAB PO PRN ×2 (09:00→09:42)
[2020-06-08] MEDS ORDERED: Ropivacaine HCl/PF 250 ML in Premix Bag 1 BAG NERVE BLCK SCH (09:00)
[2020-06-08] MEDS ORDERED: traMADol HCl 50 MG TAB PO PRN ×2 (09:00)
[2020-06-08] MEDS ORDERED: Promethazine HCl 25 MG/ML VIAL IM PRN ×3 (09:00→11:31)
[2020-06-08] MEDS ORDERED: Ondansetron PF 4 MG/2 ML Vial IVP PRN ×2 (09:00→09:42)
[2020-06-08] MEDS ORDERED: diphenhydrAMINE 25 MG CAP PO PRN (09:42)
[2020-06-08] MEDS ORDERED: Ropivacaine 0.2% HCl/PF (40 MG/20 ML VIAL) ONE (10:06)
[2020-06-08] MEDS ORDERED: Bupivacaine HCl 0.5%/Epinephrine 1:200,000/PF 30 ml Vial ONE (10:06)
[2020-06-08] MEDS ORDERED: PROPOFOL 200 MG/20 ML VIAL ONE (10:06)
[2020-06-08] MEDS ORDERED: Lidocaine 1% PF 5 ML VIAL ONE (10:06)
[2020-06-08] MEDS ORDERED: Ondansetron HCl/PF 4 MG/2 ML Vial IVP PRN (11:31)
[2020-06-08] MEDS ORDERED: Promethazine HCl 25 MG/ML VIAL SLOW IVP PRN (11:31)
--- NOTE | 2020-06-08 12:25 | RAD ---
XR Knee Rt 2 View History: Total knee postop Comparison: None. Findings: Satisfactory appearance right total knee arthroplasty. Expected postoperative gas and edema . Impression: Satisfactory postoperative appearance.
[2020-06-08] MEDS ORDERED: Ketorolac Tromethamine 30 MG/ML VIAL ONE (13:33)
[2020-06-08] MEDS: Ketorolac Tromethamine 30 MG/ML VIAL IVP SCH ×2 (13:34→22:00)
--- NOTE | 2020-06-08 14:37 | OP ---
DATE OF PROCEDURE: 06/08/2020 PROCEDURE PERFORMED: Right total knee arthroplasty using Josh Triathlon 4 femur, 4 tibia, 9-mm X3 polyethylene and A29 patella. [employer]ICE FARMWORKER: Eliseo Braun PA-C The sales office assistant/co-surgeon was present through the entire procedure and was responsible for providing exposure, tissue retraction and any necessary limb or tissue manipulation required to obtain necessary reduction or hardware placement. The sales office assistant/co-surgeon also provided bleeding control, tissue closure, and suturing in conjunction with the primary surgeon. BLOOD LOSS: Minimal. SPECIMEN: None. DRAINS: None. COMPLICATIONS: None. PROCEDURE IN DETAIL: After informed consent was obtained in the preoperative holding area, the patient was taken to the operative suite where general anesthesia was induced. Once adequate level of general anesthesia was obtained, the patient was positioned and a well-padded tourniquet was placed around the right proximal thigh. The right lower extremity was then prepped and draped in the usual sterile fashion. Prior to exsanguination, a time-out was called and all members of the surgical team agreed upon site, surgeon, and patient. The extremity was then exsanguinated and the tourniquet was raised. A midline longitudinal incision was then made directly over the patella extending 2 fingerbreadths above the superior pole of the patella and 2 fingerbreadths inferior to the inferior patellar pole of the patella. Deeper subcutaneous layers were dissected sharply and local bleeding was controlled with Bovie electrocautery. A quad tendon longitudinal split was then made sharply and a median parapatellar arthrotomy was carried out both sharp and with Bovie electrocautery, carried down to 1 fingerbreadth medial to the tibial tubercle. The knee was then placed into flexion and the patella was everted nicely, and a copious fat pad ectomy was performed allowing for greater exposure of the tibia. The computer-assisted distal femoral fiducial was then placed and pinned firmly, and the distal femoral cutting guide was pinned firmly into place. The oscillating saw was then used to remove the appropriate amount of bone. The 4-in-1 cutting block was then placed on the distal femur and the oscillating saw was used to remove the appropriate amount of bone off the anterior, posterior, and chamfer cuts. After completion of bone cuts, the anterior cruciate ligament was resected sharply and the posterior cruciate ligament retractor was placed and the tibia was subluxed for better exposure. Partial meniscectomies were carried out, and the tibial computer-assisted fiducial was pinned, and the cutting guide was placed. Oscillating saw was then used to remove the bone, with Hohmann retractors used to take care and protect the collateral ligaments. After the tibial resection was performed, a laminar blasting miner was placed in between the freshened bone cuts. The knee placed at 90 degrees and further bilateral meniscectomies were carried out, and the curved osteotome and curettage were used to remove any excess bone spurs in the posterior compartment. The trial femoral component, tibial baseplate were placed with the appropriate polyethylene trial insert with an appropriate polyethylene spacer and patellar button. The knee was taken through full range of motion with flexion and extension from 0 to 90 degrees and patellar broach squarely in the trochlea without any squinting or subluxation noted. The knee was also stable to varus and valgus stressing at 0, 15, 45, and 90 degrees of flexion. The drawer was negative. All trial components were then removed and the keel punch was used to provide the appropriate defect in the tibia with a mallet. The freshened bone cuts were copiously irrigated with pulsatile lavage of about 1.5 L to remove all excess debris. The freshened bone cuts were then dried with suction and lap sponge. The knee was placed in flexion and retractors were placed to provide access to all bone cuts. Tobramycin-impregnated methyl methacrylate cement was then placed on the freshened bone cuts and implants which were malleted firmly into place. Curettage and Ten Sleep elevators were used to remove any excess bone cement. The knee was placed into full extension and the patellar button was placed under compression, and the cement was allowed to cure. Once completed, the components were again taken through full range of motion and copious irrigation of the knee was carried out with another liter of normal saline. All components were inspected fully with full range of motion and varus and valgus stressing. There was no laxity noted and full extension was observed clinically. Primary closure was accomplished with #2 interrupted Vicryl stitch of the arthrotomy defect. This was oversewn with a #2 running Quill barbed stitch. The gravitational platelet system was then injected into the arthrotomy prior to closure. The subcutaneous layer was then closed with a running 0 barbed Monocryl stitch and skin closure accomplished with a running subcuticular 3-0 Monocryl barbed Quill stitch and augmented with cement on the skin. Tourniquet was lowered. Good spontaneous return of distal pulses was noted clinically and a sterile dressing was applied to the incision. The procedure was terminated without any complications. The patient was awakened in the operative suite and was removed, and the patient was taken to the recovery room in stable condition. Job ID: [id number]
[2020-06-08] MEDS: CEFAZOLIN 2 GM in Premix Bag 1 BAG IVPB SCH (16:48)
[2020-06-08] MEDS ORDERED: Promethazine HCl 25 MG/ML VIAL ONE (19:23)
[2020-06-08] MEDS: Sodium Chloride 0.9% 1,000 ML IV SCH ×2 (22:23→22:25)
[2020-06-08] MEDS: Amitriptyline HCl 10 MG TAB PO SCH (22:23)
[2020-06-08] MEDS: Aspirin 81 mg Enteric Coated Tablet PO SCH (22:23)
[2020-06-08] MEDS: Amlodipine 10 MG TAB PO SCH (22:24)
[2020-06-09] MEDS: Sodium Chloride 0.9% 1,000 ML IV SCH ×2 (00:13→16:49)
[2020-06-09] MEDS: CEFAZOLIN 2 GM in Premix Bag 1 BAG IVPB SCH (00:13)
[2020-06-09] MEDS: Ketorolac Tromethamine 30 MG/ML VIAL IVP SCH ×6 (00:14→20:06)
[2020-06-09] MEDS ORDERED: Lorazepam 1 MG TAB PO SCH (00:30)
[2020-06-09] MEDS: Levothyroxine Sodium 25 MCG TAB PO SCH (05:56)
[2020-06-09] MEDS: Levothyroxine Sodium 112 MCG TAB PO SCH (05:57)
[2020-06-09] MEDS ORDERED: Sodium Chloride 0.9% 10 ML ONE (05:59)
[2020-06-09] MEDS ORDERED: LEVOTHYROXINE SODIUM 137 MCG PO SCH (09:00)
[2020-06-09] MEDS: Propranolol 10 MG TAB PO SCH (09:28)
[2020-06-09] MEDS: Senokot S 8.6-50 MG TAB PO SCH ×2 (09:28→21:02)
[2020-06-09] MEDS: Ferrous Gluconate 324 MG TAB PO SCH ×2 (09:28→21:03)
[2020-06-09] MEDS: Multivitamin W/ Minerals 1 TAB PO SCH (09:30)
[2020-06-09] MEDS: Aspirin 81 mg Enteric Coated Tablet PO SCH ×2 (09:31→21:02)
[2020-06-09] MEDS ORDERED: Ketorolac Tromethamine 30 MG/ML VIAL ONE (11:48)
[2020-06-09 11:50] LABS: Hemoglobin 10.3 g/dL (12.0-16.0); Mean Corpuscular HGB CONC 33.5 g/dL (32.0-36.0); Mean Corpuscular Hemoglobin 31.3 pg (27.0-31.0); Mean Corpuscular Volume 93.3 fL (78.0-98.0); Mean Platelet Volume 6.5 fL (7.4-10.4); Platelet Count 306 thou/uL (130-400); RBC Distribution Width 12.4 % (11.5-14.5); Red Blood Cell (RBC) Count 3.29 mill/uL (4.20-5.40); White Blood Cell (WBC) Count 14.2 thou/uL (4.8-10.8)
[2020-06-09] MEDS ORDERED: traMADol HCl 50 MG TAB ONE (11:54)
[2020-06-09] MEDS: Acetaminophen 325 MG TAB PO PRN (17:20)
[2020-06-09] MEDS ORDERED: Venlafaxine HCl XR 150 MG CAP PO SCH (21:00)
[2020-06-09] MEDS: Amitriptyline HCl 10 MG TAB PO SCH (21:02)
[2020-06-09] MEDS: Amlodipine 10 MG TAB PO SCH (21:03)
[2020-06-10] MEDS: Ketorolac Tromethamine 30 MG/ML VIAL IVP SCH ×2 (00:30→05:25)
[2020-06-10] MEDS: Sodium Chloride 0.9% 1,000 ML IV SCH ×2 (05:25→15:45)
[2020-06-10] MEDS: Levothyroxine Sodium 25 MCG TAB PO SCH (05:25)
[2020-06-10] MEDS: Levothyroxine Sodium 112 MCG TAB PO SCH (05:25)
[2020-06-10 05:31] LABS: Hemoglobin 10.5 g/dL (12.0-16.0); Mean Corpuscular HGB CONC 33.7 g/dL (32.0-36.0); Mean Corpuscular Volume 92.2 fL (78.0-98.0); Mean Platelet Volume 6.5 fL (7.4-10.4); Platelet Count 274 thou/uL (130-400); RBC Distribution Width 12.2 % (11.5-14.5); Red Blood Cell (RBC) Count 3.37 mill/uL (4.20-5.40); White Blood Cell (WBC) Count 13.9 thou/uL (4.8-10.8)
[2020-06-10] MEDS: Aspirin 81 mg Enteric Coated Tablet PO SCH (08:17)
[2020-06-10] MEDS: Senokot S 8.6-50 MG TAB PO SCH (08:17)
[2020-06-10] MEDS: Ferrous Gluconate 324 MG TAB PO SCH (08:17)
[2020-06-10] MEDS: Multivitamin W/ Minerals 1 TAB PO SCH (08:18)
[2020-06-10] MEDS: Propranolol 10 MG TAB PO SCH (11:05)
[2020-06-10] MEDS: Acetaminophen 325 MG TAB PO PRN (15:43)
[2020-06-10 17:28] VITALS: BP 149/85; TEMP 99.2
== END 2020-06-10 15:50 | disposition home or self-care (01) ==
LOC: SDC 07:17 → SJJU 06-09 09:42 → SDC 06-10 15:50
PROVIDERS: ATTEND Orthopaedic Surgery
PROC: 0SRC0J9 Replacement of Right Knee Joint with Synthetic Substitute, Cemented, Open Approach (ICD-10-PCS; principal; 2020-06-08)
PROC: 8E0YXBZ Computer Assisted Procedure of Lower Extremity (ICD-10-PCS; 2020-06-08)
PROC: 3E0T3BZ Introduction of Anesthetic Agent into Peripheral Nerves and Plexi, Percutaneous Approach (ICD-10-PCS; 2020-06-08)
PROC: 3E0T3BZ Introduction of Anesthetic Agent into Peripheral Nerves and Plexi, Percutaneous Approach (ICD-10-PCS; 2020-06-08)
DX: M17.11 Unilateral primary osteoarthritis, right knee (principal); G89.18 Other acute postprocedural pain; F32.9 Major depressive disorder, single episode, unspecified; E78.5 Hyperlipidemia, unspecified; E03.9 Hypothyroidism, unspecified; I12.9 Hypertensive chronic kidney disease with stage 1 through stage 4 chronic kidney disease, or unspecified chronic kidney disease; N18.30 Chronic kidney disease, stage 3 unspecified; G47.33 Obstructive sleep apnea (adult) (pediatric); M81.0 Age-related osteoporosis without current pathological fracture; Z79.899 Other long term (current) drug therapy; Z88.8 Allergy status to other drugs, medicaments and biological substances; Z96.652 Presence of left artificial knee joint
CPT/HCPCS: 20985; 27447; 64445; 64448; 73560; 85027; 97110 ×2; 97116 ×3; 97139 ×4; 97530 ×2; C1713; C1776; 36415; J0690; J1885; J2001; J2250; J2550; J2704; J2795; J3010; J3370; J3490

== ENCOUNTER 2020-08-19 15:58 | Outpatient (CLI) | payer MEDICARE, OTHER ==
--- NOTE | 2020-08-19 16:26 | RAD ---
2 view chest: [08/19/2020] Comparison:01/12/2020 HISTORY: Chronic cough FINDINGS: Stable atherosclerotic calcification of the aortic arch. Stable increased linear interstiti al density with pulmonary hyperinflation suggesting COPD in the proper clinical setting. Stable prominence of the cardiac silhouette. Multilevel disc space narrowing and anterior osteophyte formati on within the thoracic spine. IMPRESSION: Chronic findings as above.
== END 2020-08-19 15:59 | disposition home or self-care (01) ==
LOC: BICRAD 15:58
PROVIDERS: ATTEND Internal Medicine
DX: R05 Cough (principal); I70.0 Atherosclerosis of aorta; J98.4 Other disorders of lung; I51.7 Cardiomegaly; M51.34 Other intervertebral disc degeneration, thoracic region; M25.78 Osteophyte, vertebrae
CPT/HCPCS: 71046

== ENCOUNTER 2022-10-10 09:34 | Outpatient (CLI) | payer MEDICARE, OTHER | END 2022-10-10 09:35 | disposition home or self-care (01) | LOC: MRI 09:34 | PROVIDERS: ATTEND Psychiatry & Neurology Neurology | DX: R41.3 Other amnesia (principal); G25.0 Essential tremor; I67.82 Cerebral ischemia; G31.9 Degenerative disease of nervous system, unspecified | CPT/HCPCS: 70551; 78803; A9552 ==

== ENCOUNTER 2023-08-06 09:08 | Outpatient (CLI) | payer MEDICARE, OTHER | END 2023-08-06 09:09 | disposition home or self-care (01) | LOC: BICULT 09:08 | PROVIDERS: ATTEND Family Medicine | DX: R10.13 Epigastric pain (principal); Z90.49 Acquired absence of other specified parts of digestive tract | CPT/HCPCS: 76700 ==